=== PATIENT | female | born 1940 | race Asian ===

== ENCOUNTER → 2016-06-04 | Outpatient (CLI) | payer OTHER, MEDICAID | END | disposition home or self-care (01) | LOC: RADPV 13:08 | PROVIDERS: ATTEND Internal Medicine | DX: M50.320 Other cervical disc degeneration, mid-cervical region, unspecified level (principal); M47.892 Other spondylosis, cervical region; M25.78 Osteophyte, vertebrae; M12.88 Other specific arthropathies, not elsewhere classified, other specified site | CPT/HCPCS: 72040 ==

== ENCOUNTER → 2016-12-05 | Outpatient (CLI) | payer OTHER, MEDICAID | END | disposition home or self-care (01) | LOC: RADPV 10:04 | PROVIDERS: ATTEND Internal Medicine | DX: N28.1 Cyst of kidney, acquired (principal); N13.39 Other hydronephrosis | CPT/HCPCS: 76700 ==

== ENCOUNTER 2021-10-04 19:45 | Emergency (ER) | payer OTHER, MEDICAID ==
[~2021-10-04] VITALS: Ht 152.4 cm; Wt 54.5 kg
[2021-10-04] MEDS ORDERED: ASPI81TA87 PO (19:55)
[2021-10-04] MEDS ORDERED: LOVA20TA3 PO (19:55)
[2021-10-04] MEDS ORDERED: AZIL80TA PO (19:55)
[2021-10-04] MEDS ORDERED: HYDR-4174 PO (19:55)
[2021-10-04] MEDS ORDERED: DILT-72 PO (19:55)
[2021-10-04] MEDS ORDERED: OMEP20CA13 PO (19:55)
[2021-10-04] MEDS ORDERED: OMEP20CA12 PO (19:55)
[2021-10-04] MEDS ORDERED: PANTOPRAZOLE SODIUM 40 MG/VIAL IVP ONE (20:00)
[2021-10-04] MEDS ORDERED: FAMOTIDINE 10 MG/ML 2 ML VIAL IVP ONE (20:00)
[2021-10-04] MEDS ORDERED: ONDANSETRON HCL 4 MG/2 ML VIAL IVP ONE (20:00)
[2021-10-04 20:10] LABS: COVID AG,FIA SOURCE NASOPHARYNGEAL
[2021-10-04 20:40] LABS: BASOPHILS % (AUTO) 0.2 % (0.0-2.0); EOSINOPHILS % (AUTO) 0.1 % (1.0-6.0); HEMATOCRIT 39.5 % (36-46); HEMOGLOBIN 13.3 g/dL (12.0-16.0); LYMPHOCYTES % (AUTO) 9.5 % (22.0-44.0); MEAN CORPUSCULAR HEMOGLOBIN 32.6 pg (26.0-34.0); MEAN CORPUSCULAR HGB CONC 33.6 G/dL (31.0-37.0); MEAN CORPUSCULAR VOLUME 97 fL (80-100); MONOCYTES # (AUTO) 0.7 K/uL (0.1-1.0); MONOCYTES % (AUTO) 6.4 % (2.0-9.0); NEUTROPHILS # (AUTO) 8.8 K/uL (1.8-7.7); NEUTROPHILS % (AUTO) 83.8 % (40.0-70.0); PLATELET COUNT (AUTO) 265 K/uL (150-450); RED BLOOD CELL COUNT(AUTO) 4.08 MIL/uL (4.00-5.20); RED CELL DISTRIBUTION WIDTH 13.4 % (11.5-14.5)
[2021-10-04] MEDS ORDERED: PANTOPRAZOLE SODIUM 80 MG in SODIUM CHLORIDE 0.9% 100 ML IV SCH (20:45)
[2021-10-04 20:53] LABS: CALCIUM, TOTAL 9.2 mg/dL (8.8-10.5); CREATININE 1.37 mg/dL (0.60-1.30); POTASSIUM 4.1 mmol/L (3.5-5.1)
[2021-10-04 20:58] LABS: ALBUMIN 3.6 g/dL (3.4-5.0); BILIRUBIN,TOTAL 0.4 mg/dL (0.1-1.0); TOTAL PROTEIN, SERUM 7.6 g/dL (6.4-8.2)
[2021-10-04 21:08] LABS: PROTHROMBIN TIME 10.3 SEC (9.4-11.6)
[2021-10-05] MEDS ORDERED: MORPHINE SULFATE 2 MG/ML SYRINGE IVP ONE (02:45)
[2021-10-05 03:00] VITALS: BP 141/66
== END 2021-10-05 04:22 | disposition short-term general hospital (02) ==
LOC: EMS 19:50
DX: K92.2 Gastrointestinal hemorrhage, unspecified (principal); Z20.822 Contact with and (suspected) exposure to COVID-19; K80.20 Calculus of gallbladder without cholecystitis without obstruction; E78.00 Pure hypercholesterolemia, unspecified; E78.5 Hyperlipidemia, unspecified; I10 Essential (primary) hypertension; K21.9 Gastro-esophageal reflux disease without esophagitis; R91.1 Solitary pulmonary nodule
CPT/HCPCS: 36415; 71045; 74176; 80053; 82271; 83690; 85025; 85610; 85730; 86850; 86900; 86901; 87426; 93005; 96365; 96375 ×2; 96376; 99285; C9113; J2270; J2405; J3490; J7050